=== PATIENT | male | born 1985 | race African-American/Black ===

== ENCOUNTER 2017-12-08 15:16 | Emergency (ER) | payer BC, OTHER ==
--- NOTE | 2017-12-08 15:40 | EDM.PDOC ---
ED HPI GENERAL MEDICAL PROBLEM - General Chief Complaint: ENT Problem Stated Complaint: LEFT EARACHE Time Seen by Provider: 12/08/17 15:20 Source of Information: Reports: Patient History Limitations: Reports: No Limitations - History of Present Illness INITIAL COMMENTS - FREE TEXT/NARRATIVE: HISTORY AND PHYSICAL: History of present illness: Patient is a 32-year-old male who presents to the emergency room with complaints of bilateral ear pain. He states he feels like he has "wax buildup" in both ears and does have some mild throat pain over the past 4 days. Denies any fever, chills, chest pain, shortness of breath or cough. Denies any GI or symptoms. Review of systems: As per history of present illness and below otherwise all systems reviewed and negative. Past medical history: As per history of present illness and as reviewed below otherwise noncontributory. Surgical history: As per history of present illness and as reviewed below otherwise noncontributory. Social history: No reported history of drug or alcohol abuse. Family history: As per history of present illness and as reviewed below otherwise noncontributory. Physical exam: General: Well-developed and well-nourished 32-year-old -[place] male. Alert and oriented. Nontoxic appearing and in no acute distress. HEENT: Atraumatic, normocephalic, pupils equal and reactive bilaterally, negative for conjunctival pallor or scleral icterus, mucous membranes moist, throat clear, left tympanic membrane does have a small amount of cerumen, erythematous with no bulging and dull light reflex. Right TM is mildly erythematous with good light reflex, no bulging. neck supple, nontender, trachea midline. No drooling or trismus noted. No meningeal signs Lungs: Clear to auscultation, breath sounds equal bilaterally, chest nontender. Heart: S1S2, regular rate and rhythm without overt murmur Abdomen: Soft, nondistended, nontender. Negative for masses or hepatosplenomegaly. Negative for costovertebral tenderness. Pelvis: Stable nontender. Genitourinary: Deferred. Rectal: Deferred. Skin: Intact, warm, dry. No lesions or rashes noted. Extremities: Atraumatic, negative for cords or calf pain. Neurovascular unremarkable. Neuro: Awake, alert, oriented. Cranial nerves II through XII unremarkable. Cerebellum unremarkable. Motor and sensory unremarkable throughout. Exam nonfocal. Notes: Patient is requesting that his ears the irrigated as he has the sensation of wax. I will give him some Debrox for the left ear, educated him on not sticking things in his ear to alleviate the sensation. He will be placed on Augmentin. Part of care measures were reviewed and discussed. He voices understanding and is agreeable to plan of care. He denies any further questions or concerns at this time. Diagnostics: [] Therapeutics: Debrox Impression: Otitis media, left Plan: 1. You may use the debrox for the sensation of wax in your ear. Do not put any foreign objects, fingers or Q-tips in the canal. Take your antibiotic as directed. 2. Follow-up with your primary caregiver in the next 1-2 days. Return to the ED as needed and as discussed. Definitive disposition and diagnosis as appropriate pending reevaluation and review of above. Duration: Day(s): Location: Reports: Head Left Ear Pain Score (Numeric/FACES): 3 - Related Data Allergies Allergy/AdvReac Type Severity Reaction Status Date / Time seafood Allergy Swelling Uncoded 12/08/17 15:39 Home Meds: Home Meds Amoxicillin/Potassium Clav [Augmentin 875-125 Tablet] 1 each PO BID 10 Days #20 tablet 12/08/17 [Rx] Past Medical History - Past Health History Medical/Surgical History: Denies Medical/Surgical History ED ROS ENT - Review of Systems Review Of Systems: ROS reveals no pertinent complaints other than HPI. ED EXAM, ENT - Physical Exam Exam: See Below (See dictation) Course - Vital Signs Last Recorded V/S: Last Vital Signs Temp 97.7 F 12/08/17 15:28 Pulse 87 12/08/17 15:28 Resp 19 12/08/17 15:28 BP 121/81 12/08/17 15:28 Pulse Ox 91 L 12/08/17 15:28 - Orders/Labs/Meds Meds: Medications Discontinued Medications Generic Name Dose Route Start Last Admin Trade Name Freq PRN Reason Stop Dose Admin Carbamide Perox/Anhydrous Glycerin 1 ml 12/08/17 15:42 Debrox 6.5% Otic Soln EARLF 12/08/17 15:43 ONETIME ONE Departure - Departure Time of Disposition: 15:41 Disposition: Home, Self-Care 01 Clinical Impression: Otitis media Qualifiers: Otitis media type: suppurative Chronicity: acute Laterality: left Recurrence: not specified as recurrent Spontaneous tympanic membrane rupture: without spontaneous rupture Qualified Code(s): H66.002 - Acute suppurative otitis media without spontaneous rupture of ear drum, left ear - Discharge Information Prescriptions: Amoxicillin/Potassium Clav [Augmentin 875-125 Tablet] 1 each PO BID 10 Days #20 tablet Referrals: PCP,None [Primary Care Provider] - Forms: ED Department Discharge Additional Instructions: The following information is given to patients seen in the emergency department who are being discharged to home. This information is to outline your options for follow-up care. We provide all patients seen in our emergency department with a follow-up referral. The need for follow-up, as well as the timing and circumstances, are variable depending upon the specifics of your emergency department visit. If you don't have a primary care physician on staff, we will provide you with a referral. We always advise you to contact your personal physician following an emergency department visit to inform them of the circumstance of the visit and for follow-up with them and/or the need for any referrals to a consulting specialist. The emergency department will also refer you to a specialist when appropriate. This referral assures that you have the opportunity for follow-up care with a specialist. All of these measure are taken in an effort to provide you with optimal care, which includes your follow-up. Under all circumstances we always encourage you to contact your private physician who remains a resource for coordinating your care. When calling for follow-up care, please make the office aware that this follow-up is from your recent emergency room visit. If for any reason you are refused follow-up, please contact the [facility] Emergency Department at and asked to speak to the emergency department charge nurse. [facility] [address] [place] [id number] 1. You may use the debrox for the sensation of wax in your ear. Do not put any foreign objects, fingers or Q-tips in the canal. Take your antibiotic as directed. 2. Follow-up with your primary caregiver in the next 1-2 days. Return to the ED as needed and as discussed.
[2017-12-08] MEDS ORDERED: Carbamide Peroxide 6.5% Otic Soln 15 ML Bottle EARLF ONE (15:42)
== END 2017-12-08 16:20 | disposition home or self-care (01) ==
LOC: MW.ED 15:16
DX: H66.002 Acute suppurative otitis media without spontaneous rupture of ear drum, left ear (principal); Z91.013 Allergy to seafood
CPT/HCPCS: 99282; A9270

== ENCOUNTER 2018-11-27 10:06 | Day surgery (SDC) | payer SELFPAY ==
[~2018-11-27 10:06] MED LIST: Acetaminophen/HYDROcodone 325-10 MG Tab PO PRN; Dexamethasone 4 MG/ML 5 ML MDV ONE; Lidocaine 1% 0 ML ONE; Midazolam 1 MG/ML 2 ML SDV ONE; Ondansetron 4 MG/2 ML SDV ONE; Phenylephrine 1% 10 MG/ML SDV ONE; Propofol 200 MG/20 ML SDV ONE; Rocuronium 100 MG/10 ML Syringe ONE; ceFAZolin 2 GM in Premix Bag 1 BAG IV SCH; ceFAZolin/Dextrose,Iso-Osmotic 2 GM/50 ML Duplex Bag IV ONE; fentaNYL 250 MCG/5 ML SDV ONE
[2018-11-27] MEDS ORDERED: Lidocaine 2% 5 ML SDV ONE ×2 (10:55→11:46)
[2018-11-27] MEDS ORDERED: Bupivacaine 0.5% 10 ML SDV ONE (10:55)
[2018-11-27] MEDS: Lactated Ringers 1,000 ML IV SCH ×2 (11:05→23:42)
[2018-11-27] MEDS ORDERED: fentaNYL 100 MCG/2 ML SDV ONE (11:10)
[2018-11-27] MEDS ORDERED: Midazolam 1 MG/ML 2 ML SDV ONE (11:10)
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
[2018-11-27] MEDS ORDERED: Propofol 200 MG/20 ML SDV ONE ×2 (11:45)
[2018-11-27] MEDS ORDERED: fentaNYL 250 MCG/5 ML SDV ONE (11:46)
[2018-11-27] MEDS ORDERED: Rocuronium 100 MG/10 ML Syringe ONE (11:46)
[2018-11-27] MEDS ORDERED: ceFAZolin/Dextrose,Iso-Osmotic 2 GM/50 ML Duplex Bag IV ONE (14:22)
[2018-11-27] MEDS ORDERED: HYDROmorphone 2 MG/ML Syringe ONE (14:32)
--- NOTE | 2018-11-27 14:56 | PCM.OPNOTE ---
- General Post-Op/Procedure Note Date of Surgery/Procedure: 11/27/18 Operative Procedure(s): R shoulder scope with SAD, extensive debridement Post-Op Diagnosis: R shoulder impingement, biceps tendonopathy Anesthesia Technique: General ET Tube, Regional Block Primary Surgeon: Kia Childress Check Grader: Selena Olivarez in mLs: 5 Condition: Good Free Text/Narrative:: #[id number]
[2018-11-27] MEDS ORDERED: Acetaminophen 1,000 MG in Premix Bag 1 BAG IV ONE (15:27)
--- NOTE | 2018-11-27 15:47 | OR ---
SURGEON: Kia Childress MD DATE OF PROCEDURE: 11/27/2018 PREOPERATIVE DIAGNOSES: 1. Right shoulder impingement syndrome. 2. Right shoulder biceps tendinopathy. POSTOPERATIVE DIAGNOSES: 1. Right shoulder impingement syndrome. 2. Right shoulder biceps tendinopathy. 3. Right shoulder degenerative anterior labral tear. PROCEDURE PERFORMED: Right shoulder arthroscopy with: 1. Subacromial decompression with release of coracoacromial ligament and acromioplasty. 2. Extensive debridement including biceps tenotomy and debridement of degenerative anterior labral tear. PRIMARY SURGEON: Kia Childress MD. NATIONAL COVERAGE SPECIALIST: ADRIEL Dixon. ANESTHESIA: General with regional block. ESTIMATED BLOOD LOSS: 5 mL. TOURNIQUET TIME: 0 minutes. COMPLICATIONS: None. DVT PROPHYLAXIS: PAS boots to bilateral lower extremities. IMPLANTS USED: None. BRIEF HISTORY: Scott is a 33-year-old male who has had complaint of persistent right shoulder pain. He had failed conservative treatment. Due to his lack of response to conservative treatment, I did recommend surgical intervention. The risks and goals of the procedure were discussed with the patient and were documented preoperatively. He agreed to proceed. DESCRIPTION OF PROCEDURE: Patient was properly identified and brought to the operating room. He was transferred from the OR cart and placed on the operating table in supine position. General anesthesia was administered. An interscalene block had been administered preoperatively. After adequate anesthesia was obtained, he was placed into a beach-chair type position. Care was taken to pad all bony prominences and his head was secured. The right upper extremity was then prepped in standard fashion using ChloraPrep solution. It was then sterilely draped. A time-out was performed to ensure correct site and procedure. Preoperative antibiotics were given. The surgical site had been marked preoperatively. A marking pen was used to identify the bony landmarks. Approximately 30 mL of normal saline was introduced into the glenohumeral joint. A posterior portal was established. Blunt trocar and cannula were introduced into the glenohumeral joint. Camera, inflow, and outflow were assembled. The rotator interval showed mild synovitis. An anterior portal was then established. The subscapularis was visualized and probed and found to be intact. No loose bodies were present within the subscapular recess. The anterior labrum was then inspected. He had degenerative fraying of the anterior labrum which was resected with electrocautery. The remainder of the labrum appeared intact. The attachment of the biceps to the superior labrum showed some peel-back. Synovitis was noted at the attachment and the synovitis was also noticed along the distal portion of the biceps as it was pulled into the joint. The findings corroborated his clinical findings, and I elected to proceed with a biceps tenotomy. Electrocautery was used to amputate the biceps tendon at its insertion on the superior glenoid labrum. The biceps tendon retracted easily into the bicipital tendon sheath. The attachment on the labrum was then smoothed. Posterior labrum showed no significant tearing. No degenerative changes were noted along the glenoid or humeral head. The axillary pouch showed no loose bodies. The arm was then brought into a slightly abducted and externally rotated position. This allowed visualization of the bare area posteriorly. As I progressed forward, there was good insertion of the rotator cuff with no evidence of partial or articular-sided tearing. The arm was then brought back into a neutral position. Instruments were removed from the glenohumeral joint. Blunt trocar and cannula were then introduced into the subacromial space. Camera, inflow, and outflow were assembled. He had significant amount of bursitis present within the subacromial space. A lateral portal was then established. Using a combination of the shaver and electrocautery, an extensive bursectomy was performed. He had quite a bit of hemorrhagic bursitis as well. The coracoacromial ligament was released anteriorly. There appeared to be impingement of the acromion on the underlying tissues and I elected to proceed with an acromioplasty. A 5.5 mm alan was used to perform the acromioplasty. This provided good decompression of the subacromial space. The rotator cuff was then inspected. It was probed as well and I did not see any evidence of obvious tears or softening of the tissue. Instruments were then removed from the shoulder. The portal sites were closed with 3-0 nylon. Xeroform gauze was placed over the wound and a bulky dressing was applied. He was placed into a sling. He was awakened from his anesthetic and transferred back to the operating room cart. He was brought to recovery room in stable condition. All needle and sponge counts were correct. KHAI / CHEYENNE /[id number]
[2018-11-27] MEDS ORDERED: HYDROmorphone 2 MG/ML SDV IVPUSH ONE ×2 (15:55→16:15)
[2018-11-27] MEDS: HYDROmorphone 2 MG/ML Syringe ONE ×2 (15:57→16:10)
[2018-11-27] MEDS ORDERED: Sodium Chloride 0.9% 2.5 ML Syringe FLUSH PRN (16:21)
[2018-11-27] MEDS ORDERED: Aluminum Hydroxide/Magnesium Hydroxide/Simethicone Susp 30 ML Cup PO PRN (16:21)
[2018-11-27] MEDS ORDERED: Morphine PF 30 MG/30 ML PCA Vial IV PRN (16:21)
[2018-11-27] MEDS ORDERED: diphenhydrAMINE 25 MG Cap PO PRN (16:21)
[2018-11-27] MEDS ORDERED: Sodium Chloride 0.9% 10 ML Syringe FLUSH PRN (16:21)
[2018-11-27] MEDS ORDERED: Ketorolac 30 MG/ML SDV IVPUSH ONE (16:30)
--- NOTE | 2018-11-27 16:50 | PCM.POSTAN ---
POST ANESTHESIA ASSESSMENT - MENTAL STATUS Mental Status: Alert, Oriented - RESPIRATORY Respiratory Status: Respiratory Rate WNL, Airway Patent, O2 Saturation Stable - CARDIOVASCULAR CV Status: Pulse Rate WNL, Blood Pressure Stable - GASTROINTESTINAL GI Status: No Symptoms - PAIN Pain Score: 9 - POST OP HYDRATION Hydration Status: Adequate & Stable - OBSERVATIONS Free Text/Narrative:: No anesthesia problems. Patient is in severe pain despite large quantity of pain medications given. Interscalene brachial plexus block failed. Decision was made to admit patient overnight and treat the pain with morphine REFRIGERATOR CABINETMAKER pump.
--- NOTE | 2018-11-27 16:58 | PCM.SN ---
- Free Text/Narrative Note: Procedure note : Right interscalene brachial plexus block for postoperative pain control. Right side of the neck prepped. Interscalene approach was used to identified brachial plexus aided with nerve stimulator. Mixture 20 cc of 0.5 % bupivacaine and 10 cc 2% lidocaine injected. Patient tolerated procedure well.
[2018-11-27] MEDS: oxyCODONE 5 MG Tab PO PRN (17:45)
[2018-11-27] MEDS: Ondansetron 4 MG/2 ML SDV IVPUSH PRN (18:12)
--- NOTE | 2018-11-27 18:23 | PCM.SN ---
- Free Text/Narrative Note: Patient seen and evaluated in recovery room. Still c/o pain in shoulder, despite multiple pain medications. Does not seem that block is working. I recommended that patient be admitted overnight for pain management. If he is doing well in the morning, we will plan on discharging him home. Patient is in agreement.
[2018-11-28] MEDS: Ketorolac 30 MG/ML SDV IVPUSH SCH ×2 (00:08→05:09)
[2018-11-28] MEDS: Ondansetron 4 MG/2 ML SDV IVPUSH PRN ×2 (00:10→08:05)
[2018-11-28] MEDS: oxyCODONE 5 MG Tab PO PRN (01:20)
[2018-11-28] MEDS: Ketorolac 10 MG Tab PO PRN ×2 (02:22→09:23)
[2018-11-28] MEDS ORDERED: Acetaminophen/oxyCODONE 325-5 MG Tab PO PRN (06:00)
--- NOTE | 2018-11-28 06:52 | PCM48HPAN ---
Post Anesthesia Note - EVALUATION WITHIN 48HRS OF ANESTHETIC Vital Signs in Normal Range: Yes Patient Participated in Evaluation: Yes Respiratory Function Stable: Yes Airway Patent: Yes Cardiovascular Function Stable: Yes Hydration Status Stable: Yes Pain Control Satisfactory: Yes Nausea and Vomiting Control Satisfactory: Yes Mental Status Recovered: Yes Resp Rate: 17 - COMMENTS/OBSERVATIONS Free Text/Narrative:: No anesthesia problems, patient in conciderable pain overnight due to shoulder muscle spasms. Otherwisw ok.
--- NOTE | 2018-11-28 08:30 | PCM.SURGPN ---
- General Info Date of Service: 11/28/18 (POD#1) Date of Surgery/Procedure: 11/27/18 (s/p right shoulder arthroscopy, biceps tenotomy & subacromial decompression) POD#: 1 Post-Op Diagnosis: s/p right shoulder arthroscopy, biceps tenotomy & subacromial decompression Admission Diagnosis/Problem: Pain Functional Status: Reports: Pain Controlled (pain better controlled than post- operatively. Now c/o more of muscle spasms), Tolerating Diet, Urinating, New Symptoms (muscle spasms) - Review of Systems General: Reports: No Symptoms. Denies: Fever HEENT: Reports: No Symptoms Pulmonary: Reports: No Symptoms. Denies: Shortness of Breath Cardiovascular: Reports: No Symptoms. Denies: Chest Pain Gastrointestinal: Reports: No Symptoms. Denies: Nausea, Vomiting Musculoskeletal: Reports: Shoulder Pain, Other (muscle spasms right shoulder) Skin: Reports: No Symptoms Neurological: Reports: No Symptoms Psychiatric: Reports: No Symptoms - Patient Data Vitals - Most Recent: Last Vital Signs Temp 37.3 C 11/28/18 04:00 Pulse 60 11/28/18 04:00 Resp 17 11/28/18 06:52 BP 122/58 L 11/28/18 04:00 Pulse Ox 90 L 11/28/18 04:00 Weight - Most Recent: 145.15 kg I&O - Last 24 Hours: Intake & Output 11/27/18 11/28/18 11/28/18 22:59 06:59 14:59 Intake Total 3000 2480 Output Total 600 Balance 3000 1880 Med Orders - Current: Current Medications Al Hydroxide/Mg Hydroxide (Mag-Al Plus) 30 ml PO Q4H PRN PRN Reason: Indigestion Cyclobenzaprine HCl (Flexeril) 10 mg PO TID [facility] Last Admin: 11/28/18 08:24 Dose: 10 mg Diphenhydramine HCl (Benadryl) 25 - 50 mg PO Q6H PRN PRN Reason: Itching Famotidine (Pepcid) 40 mg PO DAILY [facility] Last Admin: 11/28/18 08:06 Dose: Not Given Cefazolin Sodium/Dextrose 2 gm (/ Premix) 50 mls @ 100 mls/hr IV ONCALL [facility] Lactated Ringer's (Ringers, Lactated) 1,000 mls @ 100 mls/hr IV ASDIRECTED [facility] Last Admin: 11/27/18 23:42 Dose: 100 mls/hr Ketorolac Tromethamine (Toradol) 10 mg PO Q6H PRN PRN Reason: Pain Stop: 12/02/18 08:01 Last Admin: 11/28/18 02:22 Dose: 10 mg Ondansetron HCl (Zofran) 4 mg IVPUSH Q6H PRN PRN Reason: Nausea/Vomiting Last Admin: 11/28/18 08:05 Dose: 4 mg Oxycodone/Acetaminophen (Percocet 325-5 Mg) 1 - 2 tab PO Q4H PRN PRN Reason: Pain Last Admin: 11/28/18 06:45 Dose: 2 tab Sodium Chloride (Saline Flush) 10 ml FLUSH ASDIRECTED PRN PRN Reason: Keep Vein Open Sodium Chloride (Saline Flush) 2.5 ml FLUSH ASDIRECTED PRN PRN Reason: Keep Vein Open Discontinued Medications Hydrocodone Bitart/Acetaminophen ([place] 325-10 Mg) 1 - 2 tab PO Q4H PRN PRN Reason: Pain Bupivacaine HCl (Sensorcaine-Mpf 0.5%) Confirm Administered Dose 20 ml .ROUTE .STK-MED ONE Stop: 11/27/18 10:56 Cefazolin Sodium/Dextrose (Ancef) Confirm Administered Dose 2 gm IV .STK-MED ONE Stop: 11/27/18 08:06 Cefazolin Sodium/Dextrose (Ancef) Confirm Administered Dose 2 gm IV .STK-MED ONE Stop: 11/27/18 14:23 Dexamethasone (Dexamethasone) Confirm Administered Dose 20 mg .ROUTE .STK-MED ONE Stop: 11/27/18 07:41 Fentanyl (Sublimaze) Confirm Administered Dose 250 mcg .ROUTE .STK-MED ONE Stop: 11/27/18 07:39 Fentanyl (Sublimaze) Confirm Administered Dose 100 mcg .ROUTE .STK-MED ONE Stop: 11/27/18 11:11 Fentanyl (Sublimaze) Confirm Administered Dose 250 mcg .ROUTE .STK-MED ONE Stop: 11/27/18 11:47 Hydromorphone HCl (Dilaudid) Confirm Administered Dose 2 mg .ROUTE .STK-MED ONE Stop: 11/27/18 14:33 Hydromorphone HCl (Dilaudid) Confirm Administered Dose 2 mg .ROUTE .STK-MED ONE Stop: 11/27/18 15:48 Last Admin: 11/27/18 16:10 Dose: 1 mg Hydromorphone HCl (Dilaudid) 2 mg IVPUSH ONETIME ONE Stop: 11/27/18 15:56 Last Admin: 11/27/18 18:04 Dose: Not Given Hydromorphone HCl (Dilaudid) 2 mg IVPUSH ONETIME ONE Stop: 11/27/18 16:16 Last Admin: 11/27/18 18:05 Dose: Not Given Lidocaine HCl (Xylocaine-Mpf 1%) Confirm Administered Dose 5 mls @ as directed .ROUTE .STK-MED ONE Stop: 11/27/18 07:41 Acetaminophen 1,000 mg/ Premix 100 mls @ 400 mls/hr IV NOW ONE Stop: 11/27/18 15:41 Last Admin: 11/27/18 15:34 Dose: 400 mls/hr Acetaminophen (Ofirmev) Confirm Administered Dose 100 mls @ as directed IV .STK- MED ONE Stop: 11/27/18 15:29 Ketorolac Tromethamine (Toradol) 30 mg IVPUSH ONETIME ONE Stop: 11/27/18 16:31 Last Admin: 11/27/18 16:28 Dose: 30 mg Ketorolac Tromethamine (Toradol) 30 mg IVPUSH Q6H [facility] Stop: 11/28/18 05:00 Last Admin: 11/28/18 05:09 Dose: 30 mg Lidocaine (Xylocaine-Mpf 2%) Confirm Administered Dose 10 ml .ROUTE .STK-MED ONE Stop: 11/27/18 10:56 Lidocaine (Xylocaine-Mpf 2%) Confirm Administered Dose 5 ml .ROUTE .STK-MED ONE Stop: 11/27/18 11:47 Midazolam HCl (Versed 1 Mg/Ml) Confirm Administered Dose 2 mg .ROUTE .STK-MED ONE Stop: 11/27/18 07:39 Midazolam HCl (Versed 1 Mg/Ml) Confirm Administered Dose 2 mg .ROUTE .STK-MED ONE Stop: 11/27/18 11:11 Morphine Sulfate (Morphine [employer] 30 Mg In 30 Ml) 30 mg IV ASDIRECTED PRN; Protocol PRN Reason: Pain Stop: 11/28/18 06:00 Last Admin: 11/27/18 16:44 Dose: 30 mg Ondansetron HCl (Zofran) Confirm Administered Dose 4 mg .ROUTE .STK-MED ONE Stop: 11/27/18 07:41 Oxycodone HCl (Oxycodone) 5 - 10 mg PO Q4H PRN PRN Reason: Pain Stop: 11/28/18 08:00 Last Admin: 11/28/18 01:20 Dose: 10 mg Phenylephrine HCl ([place]-Synephrine) Confirm Administered Dose 10 mg .ROUTE .STK- MED ONE Stop: 11/27/18 08:07 Propofol (Diprivan 20 Ml) Confirm Administered Dose 200 mg .ROUTE .STK-MED ONE Stop: 11/27/18 07:39 Propofol (Diprivan 20 Ml) Confirm Administered Dose 200 mg .ROUTE .STK-MED ONE Stop: 11/27/18 11:46 Propofol (Diprivan 20 Ml) Confirm Administered Dose 200 mg .ROUTE .STK-MED ONE Stop: 11/27/18 11:46 Rocuronium [place] (Zemuron) Confirm Administered Dose 100 mg .ROUTE .STK-MED ONE Stop: 11/27/18 07:43 Rocuronium [place] (Zemuron) Confirm Administered Dose 100 mg .ROUTE .STK-MED ONE Stop: 11/27/18 11:47 Succinylcholine Chloride (Succinylcholine Chloride) Confirm Administered Dose 200 mg .ROUTE .STK-MED ONE Stop: 11/27/18 07:43 Succinylcholine Chloride (Succinylcholine Chloride) Confirm Administered Dose 200 mg .ROUTE .STK-MED ONE Stop: 11/27/18 11:47 - Exam Wound/Incisions: Dressing Dry and Intact, No Drainage General: Alert, Oriented HEENT: Pupils Equal, Mucous Membr. Moist/[place] Lungs: Normal Respiratory Effort Cardiovascular: Regular Rate Extremities: Normal Capillary Refill, Other (Sensation grossly intact RUE. Active ROM fingers and wrist.) Skin: Warm, Dry Neurological: No New Focal Deficit Psy/Mental Status: Alert, Normal Affect, Normal Mood - Problem List Review Problem List Initiated/Reviewed/Updated: Yes - My Orders Last 24 Hours: Active Orders 24 hr Category Date Time Status Activity as Tolerated [RC] .Routine Care 11/27/18 16:37 Active Communication Order [RC] PRN Care 11/27/18 16:21 Active Neurovascular Check [RC] Q2HR Care 11/27/18 16:21 Active Notify Provider Vital Signs [RC] ASDIRECTED Care 11/27/18 16:21 Active RT Incentive Spirometry [RC] Q1HWA Care 11/27/18 16:21 Active Ready for Discharge [RC] PER UNIT ROUTINE Care 11/27/18 15:13 Inactive Ready for Discharge [RC] PER UNIT ROUTINE Care 11/28/18 08:24 Ordered Vital Signs [RC] Q4H Care 11/27/18 16:21 Active Wound Care [RC] DAILY Care 11/27/18 16:21 Active Regular Diet [DIET] Diet 11/27/18 Dinner Active Acetaminophen/oxyCODONE [Percocet 325-5 MG] Med 11/28/18 06:00 Active 1 - 2 tab PO Q4H PRN Alum Hydrox/Mag Hydrox/Simeth [Mag-Al Plus] Med 11/27/18 16:21 Active 30 ml PO Q4H PRN Cyclobenzaprine [Flexeril] Med 11/28/18 09:00 Active 10 mg PO TID Famotidine [Pepcid] Med 11/28/18 09:00 Active 40 mg PO DAILY Ketorolac [Toradol] Med 11/27/18 08:00 Active 10 mg PO Q6H PRN Ondansetron [Zofran] Med 11/27/18 16:21 Active 4 mg IVPUSH Q6H PRN Sodium Chloride 0.9% [Saline Flush] Med 11/27/18 16:21 Active 10 ml FLUSH ASDIRECTED PRN Sodium Chloride 0.9% [Saline Flush] Med 11/27/18 16:21 Active 2.5 ml FLUSH ASDIRECTED PRN ceFAZolin [Ancef] 2 gm Med 11/27/18 08:00 Active Premix Bag 1 bag IV ONCALL diphenhydrAMINE [Benadryl] Med 11/27/18 16:21 Active 25 - 50 mg PO Q6H PRN Convert IV to Saline Lock [OM.PC] PRN Oth 11/27/18 16:30 Ordered Convert IV to Saline Lock [OM.PC] PRN Oth 11/28/18 16:30 Ordered Ice Therapy [OM.PC] Routine Oth 11/27/18 16:21 Ordered Sequential Compression Device [OM.PC] Routine Oth 11/27/18 08:00 Ordered Medication Orders Al Hydroxide/Mg Hydroxide (Mag-Al Plus) 30 ml PO Q4H PRN PRN Reason: Indigestion Cyclobenzaprine HCl (Flexeril) 10 mg PO TID [facility] Last Admin: 11/28/18 08:24 Dose: 10 mg Diphenhydramine HCl (Benadryl) 25 - 50 mg PO Q6H PRN PRN Reason: Itching Famotidine (Pepcid) 40 mg PO DAILY [facility] Last Admin: 11/28/18 08:06 Dose: Not Given Cefazolin Sodium/Dextrose 2 gm (/ Premix) 50 mls @ 100 mls/hr IV ONCALL [facility] Lactated Ringer's (Ringers, Lactated) 1,000 mls @ 100 mls/hr IV ASDIRECTED [facility] Last Admin: 11/27/18 23:42 Dose: 100 mls/hr Infusion: 11/27/18 21:05 Dose: 100 mls/hr Admin: 11/27/18 11:05 Dose: 100 mls/hr Ketorolac Tromethamine (Toradol) 10 mg PO Q6H PRN PRN Reason: Pain Stop: 12/02/18 08:01 Last Admin: 11/28/18 02:22 Dose: 10 mg Ondansetron HCl (Zofran) 4 mg IVPUSH Q6H PRN PRN Reason: Nausea/Vomiting Last Admin: 11/28/18 08:05 Dose: 4 mg Admin: 11/28/18 00:10 Dose: 4 mg Admin: 11/27/18 18:12 Dose: 4 mg Oxycodone/Acetaminophen (Percocet 325-5 Mg) 1 - 2 tab PO Q4H PRN PRN Reason: Pain Last Admin: 11/28/18 06:45 Dose: 2 tab Sodium Chloride (Saline Flush) 10 ml FLUSH ASDIRECTED PRN PRN Reason: Keep Vein Open Sodium Chloride (Saline Flush) 2.5 ml FLUSH ASDIRECTED PRN PRN Reason: Keep Vein Open
[2018-11-28] MEDS ORDERED: Cyclobenzaprine 10 MG Tab PO SCH (09:00)
[2018-11-28] MEDS ORDERED: Famotidine 20 MG Tab PO SCH (09:00)
== END 2018-11-28 11:06 | disposition home or self-care (01) ==
LOC: MW.SDS 10:06 → MW.MS 17:17 → MW.SDS 11-28 11:06
PROVIDERS: ATTEND Orthopaedic Surgery
DX: M75.41 Impingement syndrome of right shoulder (principal); M75.21 Bicipital tendinitis, right shoulder; S43.491A Other sprain of right shoulder joint, initial encounter; F17.210 Nicotine dependence, cigarettes, uncomplicated; E66.9 Obesity, unspecified; Z68.41 Body mass index [BMI] 40.0-44.9, adult; Z98.890 Other specified postprocedural states; Z91.013 Allergy to seafood
CPT/HCPCS: 29823; 29826; 88304; A4217; A9270; J0131; J0330; J0690; J1170; J1885; J2001; J2250; J2274; J2405; J2704; J3010; J3490; J7120; 01622; J1100; J2370